=== PATIENT | female | born 1980 | race Caucasian/White ===

== ENCOUNTER 2017-09-28 20:18 | Emergency (ER) | payer BC ==
[~2017-09-28] VITALS: Ht 172.7 cm; Wt 105.5 kg
[2017-09-28 20:35] VITALS: BP 135/83
[2017-09-28] MEDS ORDERED: CEPHALEXIN 500 MG CAPSULE ONE (21:27)
[2017-09-28] MEDS ORDERED: CEPHALEXIN 500 MG CAPSULE PO SCH (21:30)
== END 2017-09-28 21:32 | disposition home or self-care (01) ==
LOC: ED 21:05
DX: L03.115 Cellulitis of right lower limb (principal); W57.XXXA Bitten or stung by nonvenomous insect and other nonvenomous arthropods, initial encounter; Y93.89 Activity, other specified; Y92.89 Other specified places as the place of occurrence of the external cause; Y99.8 Other external cause status
CPT/HCPCS: 99283